=== PATIENT | female | born 1980 | race Caucasian/White ===

== ENCOUNTER 2020-06-08 12:09 | Emergency (ER) | payer OTHER ==
[~2020-06-08] VITALS: Ht 149.9 cm; Wt 116.1 kg
[2020-06-08 12:10] VITALS: BP 124/82; Ht 149.9 cm; Wt 116.1 kg
== END 2020-06-08 13:36 | disposition home or self-care (01) ==
LOC: ED 12:09
DX: J02.8 Acute pharyngitis due to other specified organisms (principal); Z98.890 Other specified postprocedural states
CPT/HCPCS: J1885; J8540